=== PATIENT | male | born 1975 | race Caucasian/White ===

== ENCOUNTER → 2016-10-17 | Outpatient (RCR) ==
--- NOTE | 2016-10-17 10:44 | RS.OTEVAL ---
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 He had surgery on 09/28/16. He was first told he had a cancerous tumor, then when they did surgery her found he had a spur with a hook on it. Level of Function: Pt is not able to work. Patient has DDD, has increased pain of 10/10 in the AM and then his pain drops to 6/10 after he takes his pain meds. Pt is seeing a psychiatrist, Meme Donovan. Pt has had [place], Wil[place] Mtn. spotted fever, Limes disease, Ulnar Nerve neuropathy, and difficulty with his BLE. Pt has difficulty tying his shoes, carrying groceries, Vacuuming or sweeping, Carrying a small suitcase with the RUE is quite difficult. Functional Limitations: Sleep, Self Care, ADL's, Reaching, Pushing, Pulling, Lifting, Carrying Current Complaints/Gains: numbness of bilateral hands small digit and ring digits. Pain in RUE shoulder is a 6/10 after pain medications. Pt has to roll out of bed to pick himself up to stand and walk. Medical History Medical History: Hypertension, CVA/TIA, Arthritis Medical History Comments:: Pt has anxiety, Right RCT repair, fractured ankle 4X, limes disease, [place], Wilmer spotted mtn. fever, Surgical History: Other Surgical History Comments:: Incomplete RUE RCT repair. Spur removed. Diagnostic Testing/Imaging:: MRI before surgery showed a mass/spur Patient's Goals: To be able to use his RUE without pain. Pain Assessment - Pain Description Pain Description: Burning, Tightness, Sharp, Throbbing, Aching Pain Location: Right Shoulder Pain Description: burning, sharp, aches Current Pain Intensity: 6 Worst Pain Intensity: 10 Functional Outcome Measures UE Functional Index: 38 - G Codes & Severity Modifier G Codes: na Source of G Code score: na Observation - Observation Inspection: Edema of RUE shoulder, scar Posture: Normal Handedness: Right Shoulder ROM: Left WFL's Shoulder Muscle Strength: Left WFL's - Right Shoulder ROM Right Shoulder Flexion: 90 Right Shoulder Extension: 40 Right Shoulder Abduction: 80 Right Shoulder Internal Rotation: 60 Right Shoulder External Rotation: 37 Right Shoulder ROM Limitations: Soft Tissue Tightness, Pain - Right Shoulder Strength Right Shoulder Flexion: 3- Fair- Right Shoulder Extension: 3- Fair- Right Shoulder Abduction: 3- Fair- Right Shoulder Adduction: 3- Fair- Right Shoulder External Rotation: 3- Fair- Right Shoulder Internal Rotation: 3- Fair- - Special Tests Shoulder Speed's Sign Test: Negative Left Shoulder Drop Arm Test: Negative Left Elbow ROM: Bilaterally WFL's Elbow Muscle Strength: Left WFL's - Left Elbow Strength Left Elbow Extension: 4+ Good + Left Elbow Flexion: 4+ Good + Left Forearm Pronation: 4+ Good + Left Forearm Supination: 4+ Good + - Right Elbow Strength Right Elbow Extension: 4- Good- Right Elbow Flexion: 4 Good Right Forearm Pronation: 4 Good Right Forearm Supination: 4 Good Wrist ROM: Bilaterally WFL's Wrist Muscle Strength: Bilaterally WFL's Palpation Palpation Findings: Trigger Point Comments:: RUE subscapularis muscles Sensation Right Upper Extremity: Impaired Left Upper Extremity: Impaired Sensation Description: Numbness Modalities - Treatment Modality: Ultrasound Parameters/Method Applied: .4 w/cm2 Treatment Area: RUE shoulder Patient Position: Sitting - Hot Pack/Cryotherapy Treatment: Cryotherapy Interventions - Exercise/Activities Exercise/Activities/Manual Therapy: Evaluation, Moderate, Manual HOME EXERCISE PROGRAM: Isometrice exercises: Shlder adduction, extension, int. Rot., Ext. Rot., ice - Charges Total Direct Minutes: 45 Total Treatment Time: 15 Procedures billed for this date of service:: Evaluation moderate, Manual therapy Assessment Assessment: Pt has increased Weakness and requires more assist with ADLS. Pt would benefit from skilled OT for education, strengthening, improving function of RUE. Patient Education: Education of diagnosis, Home Exercise Program, Education of Plan of Care Rehab Potential: Good Problems/Comments: Numbness of part of hands, Weakness, shoulder popping, burning sensation with AROM, decreased independence of ADLS,and carrying items. Short Term Goals Goal #1: Pt to be independent with Home exercise program. Goal to be met by: 10/31/16 Goal #2: Pt to increase RUE AROM by 50%. Goal to be met by: 10/31/16 Goal #3: Pt to increase RUE strength 4+/5 Goal to be met by: 10/31/16 Goal #4: Pt RUE pain to decrease to 3/10. Goal to be met by: 10/31/16 Radio Station Manager Goals Goal #1: Pt to be independent with Home Exercise program. Goal to be met by: 12/08/16 Goal #2: Pt to increase RUE AROM to be WFL. Goal to be met by: 12/08/16 Goal #3: Pt pain in RUE to decrease to 1-2/10 Goal to be met by: 12/08/16 Goal #4: Pt to increase strength to 5/5 Goal to be met by: 12/08/16 Plan - Treatment to be provided Procedures: Therapeutic Exercises, Therapeutic Activity, Gait Training Modalities: Ultrasound/Phonophoresis, Cryotherapy - Treatment Plan Frequency: 2 X week Duration: 6 weeks ORDER # VISITS AND/OR THROUGH DATE: 12/08/16
== END ==
DX: M75.111 Incomplete rotator cuff tear or rupture of right shoulder, not specified as traumatic (principal)

== ENCOUNTER 2016-11-09 09:00 | Outpatient (RCR) ==
--- NOTE | 2016-10-19 14:08 | RS.OTDNOTE ---
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 He had surgery on 09/28/16. He was first told he had a cancerous tumor, then when they did surgery her found he had a spur with a hook on it. Level of Function: Pt is not able to work. Patient has DDD, has increased pain of 10/10 in the AM and then his pain drops to 6/10 after he takes his pain meds. Pt is seeing a psychiatrist, Meme Donovan. Pt has had [place], [place] Mtn[place] spotted fever, Limes disease, Ulnar Nerve neuropathy, and difficulty with his BLE. Pt has difficulty tying his shoes, carrying groceries, Vacuuming or sweeping, Carrying a small suitcase with the RUE is quite difficult. Functional Limitations: Sleep, Self Care, ADL's, Reaching, Pushing, Pulling, Lifting, Carrying Current Complaints/Gains: Pt states he has taken his pain medicine prior to tx and that he took an anxiety pill this am to not be scared of the therapy. States he has a big tolerance for pain. Pain Assessment - Pain Description Pain Location: Right Shoulder Pain Description: burning, sharp, aches Modalities - Treatment Modality: Ultrasound Parameters/Method Applied: 1.5w/cm2 x 12 mins anterior shoulder Patient Position: Supine - Hot Pack/Cryotherapy Treatment: Cryotherapy (x 10+ mins following thera ex) Comments:: CP x 15 mins following TE Interventions - Exercise/Activities Exercise/Activities/Manual Therapy: Pt in supine positon for PROM ex of shoulder elbow and wrist. Shoulder flexion, abd, IR/ER, and abduction performed x 20+ mins with min rests requiered. Pt ed/performed ISO ex with good understanding. HOME EXERCISE PROGRAM: Isometrice exercises: Shlder adduction, extension, int. Rot., Ext. Rot., ice - Charges Total Direct Minutes: 55 Total Treatment Time: 65 Procedures billed for this date of service:: CP US EX MT Assessment Patient Education: Education of diagnosis, Body/Joint mechanics, Home Exercise Program, Home Safety, Activity Modification, Education of Plan of Care Patient demonstrates compliance with HEP?: Yes Short Term Goals Goal #1: Pt to be independent with Home exercise program. Goal to be met by: 10/31/16 Progress towards goal: Progressing Goal #2: Pt to increase RUE AROM by 50%. Goal to be met by: 10/31/16 Progress towards goal: Progressing Goal #3: Pt to increase RUE strength 4+/5 Goal to be met by: 10/31/16 Progress towards goal: Progressing Goal #4: Pt RUE pain to decrease to 3/10. 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 Goal to be met by: 12/08/16 Progress towards goal: Progressing Goal #2: Pt to increase RUE AROM to be WFL. Goal to be met by: 12/08/16 Progress towards goal: Progressing Goal #3: Pt pain in RUE to decrease to 1-2/10 Goal to be met by: 12/08/16 Progress towards goal: Progressing Goal #4: Pt to increase strength to 5/5 Goal to be met by: 12/08/16 Progress towards goal: Progressing Plan PLAN OF CARE EXPIRES ON:: 12/08/16 ORDER # VISITS AND/OR THROUGH DATE: 12/08/16 PLAN: Continue Plan of Care Frequency: 2 X week Duration: 6 weeks
--- NOTE | 2016-10-25 14:00 | RS.OTDNOTE ---
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 He had surgery on 09/28/16. He was first told he had a cancerous tumor, then when they did surgery her found he had a spur with a hook on it. Level of Function: Pt is not able to work. Patient has DDD, has increased pain of 10/10 in the AM and then his pain drops to 6/10 after he takes his pain meds. Pt is seeing a psychiatrist, Meme Donovan. Pt has had [place], [place] spotted fever, Limes disease, Ulnar Nerve neuropathy, and difficulty with his BLE. Pt has difficulty tying his shoes, carrying groceries, Vacuuming or sweeping, Carrying a small suitcase with the RUE is quite difficult. Functional Limitations: Sleep, Self Care, ADL's, Reaching, Pushing, Pulling, Lifting, Carrying Current Complaints/Gains: Pt states increased pain over the past cple days but states it is related to his sleeping position. States he tries to sleep on his back but always wakes with him sleeping on his R arm. States 0 compliance with performing ice packs and that his pain has kept him up at night a few times. States c/o "squeezing sensation" and "popping" with pain increase with reaching. Pain Assessment - Pain Description Pain Description: Burning, Crushing, Sharp Pain Location: Right Shoulder Pain Description: burning, sharp, aches Current Pain Intensity: 4 Worst Pain Intensity: 6-7 Modalities - Treatment Modality: Ultrasound Parameters/Method Applied: 1.5w/cm 2 x 10 mins Patient Position: Sitting - Hot Pack/Cryotherapy Treatment: Cryotherapy (x 15 mins following) Interventions - Exercise/Activities Exercise/Activities/Manual Therapy: Pt in supine/sidelying positon for PROM ex of shoulder elbow and wrist. Shoulder flexion, abd, IR/ER, and abduction performed x 20+ mins with min rests requiered. Pt ed/performed ISO ex 05/20 with good understanding. Manual therapy/trigger point therapy performed with pt ed. HOME EXERCISE PROGRAM: Isometrice exercises: Shlder adduction, extension, int. Rot., Ext. Rot., ice - Objective Findings Objective Findings:: Full PROM - Charges Total Direct Minutes: 45 Total Treatment Time: 60 Procedures billed for this date of service:: CP US EX MT Assessment Patient Education: Education of diagnosis, Body/Joint mechanics, Home Exercise Program, Home Safety, Activity Modification, Education of Plan of Care Patient demonstrates compliance with HEP?: Yes Short Term Goals Goal #1: Pt to be independent with Home exercise program. Goal to be met by: 10/31/16 Progress towards goal: Partially Met Goal #2: Pt to increase RUE AROM by 50%. Goal to be met by: 10/31/16 Progress towards goal: Partially Met Goal #3: Pt to increase RUE strength 4+/5 Goal to be met by: 10/31/16 Progress towards goal: Partially Met Goal #4: Pt RUE pain to decrease to 3/10. 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 Goal to be met by: 12/08/16 Progress towards goal: Progressing Goal #2: Pt to increase RUE AROM to be WFL. Goal to be met by: 12/08/16 Progress towards goal: Progressing Goal #3: Pt pain in RUE to decrease to 1-2/10 Goal to be met by: 12/08/16 Progress towards goal: Progressing Goal #4: Pt to increase strength to 5/5 Goal to be met by: 12/08/16 Progress towards goal: Progressing Plan PLAN OF CARE EXPIRES ON:: 12/08/16 ORDER # VISITS AND/OR THROUGH DATE: 12/08/16 PLAN: Continue Plan of Care Frequency: 2 X week Duration: 4 weeks
--- NOTE | 2016-10-26 13:32 | RS.OTDNOTE ---
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 He had surgery on 09/28/16. He was first told he had a cancerous tumor, then when they did surgery her found he had a spur with a hook on it. Level of Function: Pt is not able to work. Patient has DDD, has increased pain of 10/10 in the AM and then his pain drops to 6/10 after he takes his pain meds. Pt is seeing a psychiatrist, Meme Donovan. Pt has had [place], [place] spotted fever, Limes disease, Ulnar Nerve neuropathy, and difficulty with his BLE. Pt has difficulty tying his shoes, carrying groceries, Vacuuming or sweeping, Carrying a small suitcase with the RUE is quite difficult. Functional Limitations: Sleep, Self Care, ADL's, Reaching, Pushing, Pulling, Lifting, Carrying Current Complaints/Gains: Pt states he has tried sleeping in different positions to protect arm and has decreased c/o pain this am. Pain Assessment - Pain Description Pain Description: Burning, Crushing, Sharp Pain Location: Right Shoulder Pain Description: burning, sharp, aches Modalities - Treatment Modality: Ultrasound Parameters/Method Applied: 1.5w/cm2 x 10 mins Treatment Area: anterior shoulder Patient Position: Sitting - Hot Pack/Cryotherapy Treatment: Cryotherapy (x15 mins following) Interventions - Exercise/Activities Exercise/Activities/Manual Therapy: Pt in sitting positon for PROM ex of shoulder elbow and wrist. Shoulder flexion, abd, IR/ER, and abduction performed along with RTC series ex with 2# hand weight 05/20 with min rests requiered. B UE stefania system along with 10# B UE retraction, 05/20. Pt ed/ performed ISO ex 05/20 with good understanding. Manual therapy/trigger point therapy performed with pt ed. HOME EXERCISE PROGRAM: Isometric exercises/2# hand weight: Shlder adduction, flexion, extension, int. Rot., Ext. Rot., ice - Objective Findings Objective Findings:: Full PROM - Charges Total Direct Minutes: 50 Total Treatment Time: 65 Procedures billed for this date of service:: EX2 US CP Assessment Patient Education: Education of diagnosis, Body/Joint mechanics, Home Exercise Program, Home Safety, Activity Modification, Education of Plan of Care Patient demonstrates compliance with HEP?: Yes Short Term Goals Goal #1: Pt to be independent with Home exercise program. Goal to be met by: 10/31/16 Progress towards goal: Partially Met Goal #2: Pt to increase RUE AROM by 50%. Goal to be met by: 10/31/16 Progress towards goal: Met Goal #3: Pt to increase RUE strength 4+/5 Goal to be met by: 10/31/16 Progress towards goal: Partially Met Goal #4: Pt RUE pain to decrease to 3/10. 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 Goal to be met by: 12/08/16 Progress towards goal: Progressing Goal #2: Pt to increase RUE AROM to be WFL. Goal to be met by: 12/08/16 Progress towards goal: Progressing Goal #3: Pt pain in RUE to decrease to 1-2/10 Goal to be met by: 12/08/16 Progress towards goal: Progressing Goal #4: Pt to increase strength to 5/5 Goal to be met by: 12/08/16 Progress towards goal: Progressing Plan PLAN OF CARE EXPIRES ON:: 12/08/16 ORDER # VISITS AND/OR THROUGH DATE: 12/08/16 PLAN: Progress Exercises Frequency: 2 X week Duration: 4 weeks
--- NOTE | 2016-10-31 14:03 | RS.OTDNOTE ---
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 He had surgery on 09/28/16. He was first told he had a cancerous tumor, then when they did surgery her found he had a spur with a hook on it. Level of Function: Pt is not able to work. Patient has DDD, has increased pain of 10/10 in the AM and then his pain drops to 6/10 after he takes his pain meds. Pt is seeing a psychiatrist, Meme Donovan. Pt has had [place], [place] spotted fever, Limes disease, Ulnar Nerve neuropathy, and difficulty with his BLE. Pt has difficulty tying his shoes, carrying groceries, Vacuuming or sweeping, Carrying a small suitcase with the RUE is quite difficult. Functional Limitations: Sleep, Self Care, ADL's, Reaching, Pushing, Pulling, Lifting, Carrying Current Complaints/Gains: Pt states pain is much better but that his sleeping positions causes increased pain. States numerous outside activites during tx including tree limb cutting and building a fence. Pain Assessment - Pain Description Pain Description: Burning, Crushing, Sharp Pain Location: Right Shoulder Pain Description: burning, sharp, aches Current Pain Intensity: 8 Worst Pain Intensity: 4 Modalities - Treatment Modality: Ultrasound Parameters/Method Applied: 1.5w/cm2 x 12 mins Treatment Area: anterior/posterior shoulder Patient Position: Sitting - Hot Pack/Cryotherapy Treatment: Cryotherapy (CP x 15 mins following therapy) Interventions - Exercise/Activities Exercise/Activities/Manual Therapy: Pt in sitting positon for PROM ex of shoulder elbow and wrist. Shoulder flexion, abd, IR/ER, and abduction performed along with RTC series ex with 3# hand weight 15/1 with min rests requiered. B UE stefania system along with 20# B UE retraction, 10# bicep curls, IR/ER 10/1. Pt ed/performed ISO ex 05/20 with good understanding. Manual therapy /trigger point therapy performed with pt ed on use of tennis ball/wall at home. HOME EXERCISE PROGRAM: Isometric exercises/3# hand weight: Shlder adduction, flexion, extension, int. Rot., Ext. Rot., ice - Objective Findings Objective Findings:: Full PROM-AROM - Charges Total Direct Minutes: 40 Total Treatment Time: 55 Procedures billed for this date of service:: CP US EX Assessment Patient Education: Education of diagnosis, Body/Joint mechanics, Home Exercise Program, Home Safety, Activity Modification, Education of Plan of Care Patient demonstrates compliance with HEP?: Yes Short Term Goals Goal #1: Pt to be independent with Home exercise program. Goal to be met by: 10/31/16 Progress towards goal: Partially Met Goal #2: Pt to increase RUE AROM by 50%. Goal to be met by: 10/31/16 Progress towards goal: Met Goal #3: Pt to increase RUE strength 4+/5 Goal to be met by: 10/31/16 Progress towards goal: Met Goal #4: Pt RUE pain to decrease to 3/10. Goal to be met by: 10/31/16 Progress towards goal: Progressing Nursing Home Goals Goal #1: Pt to be independent with Home Exercise program. Goal to be met by: 12/08/16 Progress towards goal: Progressing Goal #2: Pt to increase RUE AROM to be WFL. Goal to be met by: 12/08/16 Progress towards goal: Progressing Goal #3: Pt pain in RUE to decrease to 1-2/10 Goal to be met by: 12/08/16 Progress towards goal: Progressing Goal #4: Pt to increase strength to 5/5 Goal to be met by: 12/08/16 Progress towards goal: Progressing Plan PLAN OF CARE EXPIRES ON:: 12/08/16 ORDER # VISITS AND/OR THROUGH DATE: 12/08/16 PLAN: Progress Exercises Frequency: 2 X week Duration: 3 weeks
--- NOTE | 2016-11-02 14:37 | RS.OTDNOTE ---
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 He had surgery on 09/28/16. He was first told he had a cancerous tumor, then when they did surgery her found he had a spur with a hook on it. Level of Function: Pt is not able to work. Patient has DDD, has increased pain of 10/10 in the AM and then his pain drops to 6/10 after he takes his pain meds. Pt is seeing a psychiatrist, Meme Donovan. Pt has had [place], Wil[place] Mtn. spotted fever, Limes disease, Ulnar Nerve neuropathy, and difficulty with his BLE. Pt has difficulty tying his shoes, carrying groceries, Vacuuming or sweeping, Carrying a small suitcase with the RUE is quite difficult. Functional Limitations: Sleep, Self Care, ADL's, Reaching, Pushing, Pulling, Lifting, Carrying Current Complaints/Gains: Pt states pain at 5/10 following therapy but has no facial grimaces during TE/therapy. States pain continues and that he does have trouble with sleeping. States he returns to MD on Sun. and states he has several more surgery consults to come. Pain Assessment - Pain Description Pain Description: Burning, Crushing, Sharp Pain Location: Right Shoulder Pain Description: burning, sharp, aches Current Pain Intensity: 5 Worst Pain Intensity: 7-8 Modalities - Treatment Modality: Ultrasound Parameters/Method Applied: 1.5w/cm2 x 12 mins Treatment Area: anterior/posterior shoulder Patient Position: Sitting - Hot Pack/Cryotherapy Treatment: Cryotherapy (x15 mins following therapy) Interventions - Exercise/Activities Exercise/Activities/Manual Therapy: Pt in sitting positon for PROM ex of shoulder elbow and wrist. Shoulder flexion, abd, IR/ER, and abduction performed along with RTC series ex with 5# hand weight 15/1. B UE stefania system along with 20# B UE retraction, 10# bicep curls, IR/ER 03/09. Green t-band ER with pt ed on HEP. Pt ed/performed ISO ex 05/20 with good understanding. Manual therapy/trigger point therapy performed with pt ed on use of tennis ball/wall at home. HOME EXERCISE PROGRAM: Isometric exercises/3# hand weight: Shlder adduction, flexion, extension, int. Rot., Ext. Rot., ice - Objective Findings Objective Findings:: Full PROM-AROM - Charges Total Direct Minutes: 50 Total Treatment Time: 65 Procedures billed for this date of service:: CP US EX2 Assessment Patient Education: Education of diagnosis, Body/Joint mechanics, Home Exercise Program, Home Safety, Activity Modification, Education of Plan of Care Patient demonstrates compliance with HEP?: Yes Short Term Goals Goal #1: Pt to be independent with Home exercise program. Goal to be met by: 10/31/16 Progress towards goal: Partially Met Goal #2: Pt to increase RUE AROM by 50%. Goal to be met by: 10/31/16 Progress towards goal: Met Goal #3: Pt to increase RUE strength 4+/5 Goal to be met by: 10/31/16 Progress towards goal: Met Goal #4: Pt RUE pain to decrease to 3/10. Goal to be met by: 10/31/16 Progress towards goal: Progressing Mcc Goals Goal #1: Pt to be independent with Home Exercise program. Goal to be met by: 12/08/16 Progress towards goal: Progressing Goal #2: Pt to increase RUE AROM to be WFL. Goal to be met by: 12/08/16 Progress towards goal: Progressing Goal #3: Pt pain in RUE to decrease to 1-2/10 Goal to be met by: 12/08/16 Progress towards goal: Progressing Goal #4: Pt to increase strength to 5/5 Goal to be met by: 12/08/16 Progress towards goal: Progressing Plan PLAN OF CARE EXPIRES ON:: 12/08/16 ORDER # VISITS AND/OR THROUGH DATE: 12/08/16 PLAN: Continue Plan of Care Frequency: 2 X week Duration: 4 weeks
--- NOTE | 2016-11-07 15:05 | RS.OTDNOTE ---
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 He had surgery on 09/28/16. He was first told he had a cancerous tumor, then when they did surgery her found he had a spur with a hook on it. Level of Function: Pt is not able to work. Patient has DDD, has increased pain of 10/10 in the AM and then his pain drops to 6/10 after he takes his pain meds. Pt is seeing a psychiatrist, Meme Donovan. Pt has had [place], [place] Mtn. spotted fever, Limes disease, Ulnar Nerve neuropathy, and difficulty with his BLE. Pt has difficulty tying his shoes, carrying groceries, Vacuuming or sweeping, Carrying a small suitcase with the RUE is quite difficult. Functional Limitations: Sleep, Self Care, ADL's, Reaching, Pushing, Pulling, Lifting, Carrying Current Complaints/Gains: Pt states pain is low but feels "stiff" from not coming to therapy for several days. States return to neuro MD yesterday and returns to a new ortho MD next wk. States he is in the beginning stages of applying for disability but was told he would qualify for light duty work activities. Also states he feels better following therapy and agrees to apply ice pack several times daily. Pain Assessment - Pain Description Pain Description: Burning, Crushing, Sharp Pain Location: Right Shoulder Pain Description: burning, sharp, aches Modalities - Treatment Modality: Ultrasound Parameters/Method Applied: 1.5w/cm 2 x 12 mins Patient Position: Sitting - Hot Pack/Cryotherapy Treatment: Cryotherapy Interventions - Exercise/Activities Exercise/Activities/Manual Therapy: Pt in sitting, supine, and prone positions for TE x 50+ mins this date. PROM/gentle stretching progressed to resistive TE performed. ISO ex performed /, 5# hand weight ex of shoulder flexion, butterfly's and extension in supine position along with shoulder extension and scapula pull backs in prone position, 15/2 each. Multi-gym ex of pull-downs and shoulder pulls performed, 04/10 along with IR/ER and RTC seriers ex's. Pt instructed to walk the wall and perform codman's ex to keep AROM increased between therapy sessions. HOME EXERCISE PROGRAM: Isometric exercises/3# hand weight: Shlder adduction, flexion, extension, int. Rot., Ext. Rot., ice - Objective Findings Objective Findings:: Full PROM-AROM. MMT grossly 4+/5 - Charges Total Direct Minutes: 60 Total Treatment Time: 75 Procedures billed for this date of service:: CP US EX3 Assessment Patient Education: Education of diagnosis, Body/Joint mechanics, Home Exercise Program, Home Safety, Activity Modification, Education of Plan of Care Patient demonstrates compliance with HEP?: Yes Short Term Goals Goal #1: Pt to be independent with Home exercise program. Goal to be met by: 10/31/16 Progress towards goal: Partially Met Goal #2: Pt to increase RUE AROM by 50%. Goal to be met by: 10/31/16 Progress towards goal: Met Goal #3: Pt to increase RUE strength 4+/5 Goal to be met by: 10/31/16 Progress towards goal: Met Goal #4: Pt RUE pain to decrease to 3/10. Goal to be met by: 10/31/16 Progress towards goal: Partially Met Life Skills Coach Goals Goal #1: Pt to be independent with Home Exercise program. Goal to be met by: 12/08/16 Progress towards goal: Partially Met Goal #2: Pt to increase RUE AROM to be WFL. Goal to be met by: 12/08/16 Progress towards goal: Partially Met Comments: following PROM/stretching Goal #3: Pt pain in RUE to decrease to 1-2/10 Goal to be met by: 12/08/16 Progress towards goal: Progressing Goal #4: Pt to increase strength to 5/5 Goal to be met by: 12/08/16 Progress towards goal: Progressing Plan PLAN OF CARE EXPIRES ON:: 12/08/16 ORDER # VISITS AND/OR THROUGH DATE: 12/08/16 PLAN: Continue Plan of Care Frequency: 2 X week Duration: 3 weeks
--- NOTE | 2016-11-09 10:52 | RS.OTDNOTE ---
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 He had surgery on 09/28/16. He was first told he had a cancerous tumor, then when they did surgery her found he had a spur with a hook on it. Level of Function: Pt is not able to work. Patient has DDD, has increased pain of 10/10 in the AM and then his pain drops to 6/10 after he takes his pain meds. Pt is seeing a psychiatrist, Meme Donovan. Pt has had [place], [place]. spotted fever, Limes disease, Ulnar Nerve neuropathy, and difficulty with his BLE. Pt has difficulty tying his shoes, carrying groceries, Vacuuming or sweeping, Carrying a small suitcase with the RUE is quite difficult. Functional Limitations: Sleep, Self Care, ADL's, Reaching, Pushing, Pulling, Lifting, Carrying Current Complaints/Gains: Pt is agreeable to DC today. States he is scheduled for (R) UE cubital tunnel surgery next . States UE strength and ROM are both coming back but is concerned with UE becoming more stiff with rests from CTS. Pt voices good understanding of HEP and states he will perform CP application more at home. Pt also states seveal times duirng tx that he knows he will not be able to perform heavy duty type work activites with all his body problems that are arising. Pain Assessment - Pain Description Pain Description: Tightness, Sharp, Dull, Aching (Popping continues at times with certain movements) Pain Location: Right Shoulder Pain Description: burning, sharp, aches Current Pain Intensity: 1 Worst Pain Intensity: 3 Modalities - Treatment Modality: Ultrasound Parameters/Method Applied: 1.5w/cm2 x 12 mins Treatment Area: anterior shoulder Patient Position: Sitting - Hot Pack/Cryotherapy Treatment: Cryotherapy (x 10+ mins following treatment) Interventions - Exercise/Activities Exercise/Activities/Manual Therapy: HEP instruction with pt performing with blue t-band. IR/ER, pull-downs, shoulder flexion, scaption, and abd. Pt also performed and ed on 5# hand weight RTC series ex. Pt voices good understanding. HOME EXERCISE PROGRAM: Isometric exercises/3# hand weight: Shlder adduction, flexion, extension, int. Rot., Ext. Rot., ice - Objective Findings Objective Findings:: Full PROM-AROM. MMT grossly 4+/5 - Charges Total Direct Minutes: 50 Total Treatment Time: 62 Procedures billed for this date of service:: US EX2 CP Assessment Patient Education: Education of diagnosis, Body/Joint mechanics, Home Exercise Program, Home Safety, Activity Modification, Education of Plan of Care Patient demonstrates compliance with HEP?: Yes Short Term Goals Goal #1: Pt to be independent with Home exercise program. Goal to be met by: 10/31/16 Progress towards goal: Met Goal #2: Pt to increase RUE AROM by 50%. Goal to be met by: 10/31/16 Progress towards goal: Met Goal #3: Pt to increase RUE strength 4+/5 Goal to be met by: 10/31/16 Progress towards goal: Met Goal #4: Pt RUE pain to decrease to 3/10. Goal to be met by: 10/31/16 Progress towards goal: Met Intermediate Goals Goal #1: Pt to be independent with Home Exercise program. Goal to be met by: 12/08/16 Progress towards goal: Met Goal #2: Pt to increase RUE AROM to be WFL. Goal to be met by: 12/08/16 Progress towards goal: Met Goal #3: Pt pain in RUE to decrease to 1-2/10 Goal to be met by: 12/08/16 Progress towards goal: Partially Met Goal #4: Pt to increase strength to 5/5 Goal to be met by: 12/08/16 Progress towards goal: Progressing Plan PLAN OF CARE EXPIRES ON:: 12/08/16 ORDER # VISITS AND/OR THROUGH DATE: 12/08/16 PLAN: DC Frequency: DC Duration: DC
--- NOTE | 2016-11-30 10:41 | RS.OTQKDC ---
OT Discharge Date of Discharge: 11/30/16 Number of Visits: 8 Reason for Discharge: Pt scheduled for an upcoming CTS next wk. Pt agreeable to DC and states good understanding of HEP and CP application.
== END 2016-11-17 ==
DX: M75.111 Incomplete rotator cuff tear or rupture of right shoulder, not specified as traumatic (principal)

== ENCOUNTER 2017-01-19 11:04 | Outpatient (CLI) ==
[2017-01-19 12:02] LABS: BASOPHILS % (AUTO) 0.5 % (0.0-3.0); EOSINOPHILS # (AUTO) 0.2 K/ul (0.0-0.7); EOSINOPHILS % (AUTO) 1.8 % (0.0-7.0); HEMATOCRIT 46.1 % (42.0-52.0); HEMOGLOBIN 16.1 g/dl (14.0-18.0); IMMATURE GRANULOCYTE % (AUTO) 0.2 % (0.0-5.0); LYMPHOCYTES # (AUTO) 2.5 K/uL (0.60-3.4); MEAN CORPUSCULAR HEMOGLOBIN 30.7 pg (27.0-31.0); MEAN CORPUSCULAR HGB CONC 34.9 (31.8-35.4); MEAN CORPUSCULAR VOLUME 87.8 fl (80.0-94.0); MONOCYTES # (AUTO) 0.4 K/uL (0.4-2.0); MONOCYTES % (AUTO) 4.3 (0-10); NEUTROPHILS # (AUTO) 5.1 K/ul (2.0-6.9); NEUTROPHILS % (AUTO) 62.2; PLATELET COUNT 281 10^3/uL (140-440); RED BLOOD COUNT 5.25 10^6/ul (4.70-6.10)
[2017-01-19 12:43] LABS: ALBUMIN 3.8 g/dL (3.4-5.0); ALBUMIN/GLOBULIN RATIO 0.95; ANION GAP 12.6; BILIRUBIN,TOTAL 0.56 mg/dL (0.00-1.20); BUN/CREATININE RATIO 10.9; CALCIUM 9.9 mg/dL (8.2-10.2); CREATININE 1.1 mg/dL (0.60-1.10); POTASSIUM 3.6 mmol/L (3.5-5.1); TOTAL PROTEIN 7.8 g/dL (6.4-8.2)
== END 2017-01-19 11:05 | disposition home or self-care (01) ==
LOC: LAB 11:04
PROVIDERS: ATTEND Nurse Practitioner Family
DX: E78.5 Hyperlipidemia, unspecified (principal); I10 Essential (primary) hypertension
CPT/HCPCS: 36415; 80053; 80061; 84439; 84443; 85025

== ENCOUNTER 2017-01-22 12:03 | Outpatient (CLI) ==
--- NOTE | 2017-01-22 14:14 | MRI ---
EXAM: MRI lumbar spine without and with IV contrast. DATE: 22 January 2017. HISTORY: Dorsaligia, unspecified. Low back pain, bilateral lower extremity numbness. No previous lumbar surgery. TECHNIQUE: Sagittal and axial T1W and T2W sequences of the lumbar spine along with sagittal IR and coronal T2W sequences were obtained using 1.2 Lorene magnet. CONTRAST: Omniscan - 20 ml IV. COMPARISON: MRI L-spine January 25 2016. FINDINGS: There are five gss-ycu-rempdxn lumbar vertebra. A 3 mm anterior subluxation of S1 relati ve to L5 is noted. No other subluxation, acute fracture, osseous malignancy, or pars interarticular is defect is identified. Lumbar vertebra are normal in height. Bone marrow signal is normal. Disc desiccation without significant disc space narrowing is demonstrated at L5-S1. Remaining intervert ebral discs are normal in height and signal. No sacral fracture or stress reaction is detected. SI joints are unremarkable. Conus medullaris terminates at T12-L1. Visible spinal cord is normal. N o abnormal contrast enhancement is identified in the spinal cord, nerve roots, vertebral bodies or i ntervertebral discs. No retroperitoneal lymphadenopathy, paraspinal mass, or aortic aneurysm is evident. Atherosclerotic plaques are scattered within the distal aortic wall. Paraspinal musculature is symmetric bilateral ly. Visible portions of the liver, spleen, adrenal glands, and kidneys are normal. Segmental analysis: T11-12: Normal. T12-L1: Normal. L1-2: Normal. L2-3: Normal. L3-4: Minimal posterior disc bulge, minor facet arthropathy, and slight ligamentum flavum hypertrop hy cause mild central canal stenosis. Each foramen is patent. L4-5: Mild facet arthropathy and mild ligamentum flavum hypertrophy cause mild central canal stenos is. Each foramen is patent. L5-S1: Minor anterior subluxation of S1, small pseudodisc bulge, and minor facet disease cause kala r left foraminal narrowing. Left L5 nerve root contacts the disc bulge near the foramen. No central canal stenosis. IMPRESSIONS: 1. L-spine minor disc bulges and facet disease. 2. Mild central canal stenoses at L3-4 and L4-5. 3. Minor left foraminal narrowing at L5-S1, with left L5 nerve root contacting the disc bulge in th e foramen. This could be a source for pain/radiculopathy. 4. Aortic atherosclerosis.
== END 2017-01-22 12:04 | disposition home or self-care (01) ==
LOC: RAD 12:03
PROVIDERS: ATTEND Nurse Practitioner Family
DX: M54.5 Low back pain (principal); G89.29 Other chronic pain

== ENCOUNTER 2017-02-08 09:48 | Outpatient (CLI) ==
--- NOTE | 2017-02-08 13:41 | MRI ---
EXAM: MRI right shoulder without contrast. HISTORY: Pain right shoulder. Incomplete rotator cuff tear. Rupture of right shoulder. Surgery F ebruary 2017. Repair. Lesion removed and clavicle shaved. TECHNIQUE: Using a local coil on a high field strength magnet multiplanar multisequence magnet reso nance imaging was performed of the right shoulder without intravenous or intra-articular gadolinium contrast.. FINDINGS: I do not have prior radiographs of the right shoulder available for comparison at the marily e of this dictation. A Type I I acromion. Prior acromioplasty / subacromial decompression.. Question detached coracoacr omial ligament/arch. There has additionally been distal right clavicular resection with right acrom ioclavicular joint decompression and abundant surrounding likely scar/granulation tissue.. No defin ite deltoid muscle dehiscence. Free fluid throughout the subacromial/subdeltoid space. Muscle bulk of the rotator cuff shows no overt atrophy or acute muscle strain.. Marked diffuse supr aspinatus tendinosis most evident over the far anterior insertion. There is approximate 15 mm AP by 8 mm in length area of near full-thickness tear to the far anterior insertion. Some trace overlyin g bursal sided fibers. Question full-thickness communication. Posterior there is mild infraspinatu s tendinosis. Large underlying intraosseous cyst/ganglion formation over the posterior greater tube rosity. Posterior intact teres minor tendon fibers. Anterior intact subscapularis tendon fibers. The long head of the biceps tendon shows intact fibers located in expected position within the bicip ital groove and within normal limits signal intensity and morphology. The right humeral head seated and within normal limit in morphology otherwise. No right glenohumera l joint centered subchondral bone marrow edema or bone erosions. Small right glenohumeral joint eff usion.. The right glenoid labrum grossly intact on this non-arthrographic examination.. IMPRESSION: Prior acromioplasty / subacromial decompression. Question detached coracoacromial liga ment/arch. Distal right clavicular resection with right acromioclavicular joint decompression and a bundant surrounding likely scar/granulation tissue. Marked diffuse supraspinatus tendinosis most evident over the far anterior insertion where there is approximate 15 x 8 mm area of near full-thickness tear. Trace overlying bursal sided fibers. Quest ion full-thickness communication. Free fluid throughout the subacromial/subdeltoid space. Mild infraspinatus tendinosis. Large underlying intraosseous cyst/ganglion formation over the poste rior greater tuberosity. Small right glenohumeral joint effusion.
== END 2017-02-08 09:49 | disposition home or self-care (01) ==
LOC: RAD 09:48
PROVIDERS: ATTEND Orthopaedic Surgery
DX: M25.511 Pain in right shoulder (principal); M75.111 Incomplete rotator cuff tear or rupture of right shoulder, not specified as traumatic

== ENCOUNTER 2017-02-13 14:07 | Emergency (ER) ==
[2017-02-13 14:14] VITALS: BP 147/96; TEMP 99.6; BMI 37.6
--- NOTE | 2017-02-13 14:45 | ED.PDOC ---
General ED Provider: Dr. SALVADOR LAWRENCE JR Chief Complaint: Back Pain Stated Complaint: mowing hit several bumps worsened chronic back pain. doing yard work (riding mower worsened after several bumps. has a bad back waiting to see Dr. Veronica doesn't review mri sunday will call sunday[ End ]99.6 86 20 98% 147/96 10 hydrocodone patient is using a cane and has a back brace.MAIN CONCERN IS WORSENING OF DISEASE SEEN ON mri 2 WEEKS AGO- REVIEW OF MR AND PE; NO LIKIL=MANUEL OF NEW INJURY, APPEARS NONSURGICAL BUT AGREE WITH NS FOLLOW UP, STOMACH UPASET WITH ASA- RECC NOT TAKE NSAIDS IF SYMPTOMS- RECCOMEND MUSCLE RELAXANT FOR SYMTOMS Time Seen by Physician: 14:31 Mode of Arrival: Walk-In Information Source: Patient Exam Limitations: No limitations [facility] and Triage Documentation Reviewed and Agree: No Review of Systems - Review Of Systems Constitutional: Reports: No symptoms Eyes: Reports: No symptoms Ears, Nose, Mouth, Throat: Reports: No symptoms Respiratory: Reports: No symptoms Cardiac: Reports: No symptoms GI: Reports: No symptoms : Reports: No symptoms Musculoskeletal: Reports: Back pain (RIGHT L2 AREA, PARA SPINAL INCREASE WITH LEFT SLR- RIGHT SLR NEGATRIVE RIGHT BACK PAIN WITH LEFT SLR NO LIMITATION DISCUSSED WEIGHT LOSS) Skin: Reports: No symptoms Neurological: Reports: No symptoms Endocrine: Reports: No symptoms Hematologic/Lymphatic: Reports: No symptoms All Other Systems: Other Past Medical History - Past Medical History Endocrine: Reports: Dyslipidemia Cardiovascular: Reports: Hypertension Respiratory: Reports: None Hematological: Reports: None Gastrointestinal: Reports: None Genitourinary: Reports: None Neuro/Psych: Reports: Anxiety Musculoskeletal: Reports: Back Pain (chronic) Cancer: Reports: None - Surgical History General Surgical History: Reports: Orthopedic (shoulder surgery torn rotator on right right and left ulnar neuroapthy surgery left carpal tunnel ) - Family History Family History: Reports: Unknown - Social History Smoking Status: Current every day smoker Hx Substance Use: No Alcohol Screening: None Physical Exam - Physical Exam Appearance: Well-appearing, Obese Pain Distress: Moderate Neck: Supple Respiratory: Airway patent Musculoskeletal: Normal strength, ROM intact, No edema, No calf tenderness (= TENDER RIGHT BACK) Skin: Warm, Dry, Normal color Neurological: Sensation intact, Motor intact, Reflexes intact, Cranial nerves intact, Alert, Oriented Critical Care Note - Critical Care Note Total Time (mins): 0 Course - Course Vital Signs: Temp Pulse Resp BP Pulse Ox 02/13/17 14:08 99.6 F 86 20 147/96 H 98 Departure - Departure Time of Disposition: 14:48 Disposition: HOME SELF-CARE Discharge Problem: Low back strain Instructions: Low Back Strain (ED), Lower Back Exercises (ED), Core Strengthening Exercises (ED) Condition: Good Pt referred to PMD for follow-up: Yes Additional Instructions: NORFLEX TWICE A DAY NEEDED FOR SPASMS NAPROSYN FOR PAIN (DO NOT TAKE WITH IBUPROFEN) DO NOT TAKE IF STOMACH UPSET FOLLOW UP TWO WEEKS PLANNED Prescriptions: Naproxen [Naprosyn] 500 mg PO Q12HR PRN #30 tablet PRN Reason: PAIN Orphenadrine Citrate [Norflex] 100 mg PO Q12H PRN #30 tablet.er PRN Reason: Spasms Allergies/Adverse Reactions: Allergies Penicillins Allergy (Severe, Verified 02/13/17 14:14) Anaphylaxis Home Medications: Ambulatory Orders Ibuprofen 200 mg PO PRN PRN 02/17/14 Alprazolam [Xanax] 1 mg PO QID 01/07/16 Amitriptyline HCl 300 mg PO BEDTIME PRN 01/07/16 Hydrocodone/Acetaminophen [Hydrocodon-Acetaminophn 10-325] 1 each PO TID PRN Naproxen [Naprosyn] 500 mg PO Q12HR PRN #30 tablet 02/13/17 Orphenadrine Citrate [Norflex] 100 mg PO Q12H PRN #30 tablet.er 02/13/17
[2017-02-13] MEDS ORDERED: TORADOL IM STA (14:47)
[2017-02-13] MEDS ORDERED: NORFLEX IM STA (14:47)
== END 2017-02-13 15:17 | disposition home or self-care (01) ==
LOC: ED 14:07
DX: S39.012A Strain of muscle, fascia and tendon of lower back, initial encounter (principal); X50.1XXA Overexertion from prolonged static or awkward postures, initial encounter
CPT/HCPCS: 96372; 99283

== ENCOUNTER 2017-05-17 10:00 | Outpatient (RCR) ==
--- NOTE | 2017-05-02 08:21 | RS.OPPTEV2 ---
Date of Note: 05/01/17 Visit #: 1 Date of Evaluation: 05/01/17 Payer Source: Medicaid Surgery Performed?: Yes Date of Procedure: 04/03/17 Treatment Diagnosis: Right shoulder limitation/stiffness, right shoulder weakness History of Condition/Mechanism of Injury:: Patient reports previous right shoulder surgery 09/28/[address] Adam Bradshaw. States he continued to have pain. States after Dr. Bradshaw's , he was transferred to Dr. Alvarado who felt he needed further surgery. States this year he has also had left Carpal tunnel repair and bilateral ulnar nerve relocation surgery. Prior Level of Function.....Patient was independent with: ADL's, Self Care, Caregiving, Ambulation/Mobility, Community Integration/Access Functional Limitations: Sleep, Self Care, ADL's, Reaching, Pushing, Pulling, Lifting, Carrying, Community Access/Integration Current Subjective/complaints:: Patient reports this shoulder surgery has gone much better than the first one. States he has very little discomfort. States he is mainly right handed and is unable to use the right UE for reaching and lifting due to weakness and limited AROM. Treatment Side (optional): Right Medical History Medical History: Hypertension, CVA/TIA, Arthritis Medical History Comments:: Pt has anxiety, Right RCT repair, fractured ankle 4X, limes disease, [place], Wilmer spotted mtn. fever, Surgical History: Other Surgical History Comments:: Incomplete RUE RCT repair. Spur removed. Smoking Status: Current every day smoker Hx Home Medications: Hydrocodone, Lisinopril, HCTZ, amitriptyline Patient's Goals: His goal is to get relief Pain Assessment - Pain Description Pain Location: right shoulder Current Pain Intensity: 1/10 prior to therapy Functional Outcome Measure UE Functional Index: 22 (22/80=72.5% impairment) - G Codes & Severity Modifier G Codes & Modifier: NA Source of G Code score: NA Observation - Observation Inspection: Demonstrates well healing incision sites at the right shoulder. Posture: Forward Head, Rounded Shoulders Handedness: Ambidextrous (mostly right hand dominant) Shoulder ROM: Left WFL's Shoulder Muscle Strength: Left WFL's - Right Shoulder ROM Comments: right shoulder PROM is WFL's. AROM right shoulder: flexion 104 degrees, extension 50 degrees, abduction 90 degrees, IR 35 degrees, ER 38 degrees. Demonstrates full right elbow AROM 0-150. 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 Tolerates PROM WFL's. Reports slight discomfort at the anterior shoulder region with end range horizontal adduction. Staying in supine, patient performed gentle isometrics with shoulder held at 90 degrees flexion, into flexion/extension, and horz add/abd. Performed on shoulder pulleys X 15-20 reps. Scapular retraction with green theraband 2 sets of 10 reps. Performed 10 wall push-ups. Patient given green theraband for scapular retraction at home and also advised to perform pendulum exercises and ice PRN. Manual Therapy: NA HOME EXERCISE PROGRAM: green theraband for scapular retraction and pendulum exercise for home - Charges Total Direct Minutes: 50 mins Total Treatment Time: 50 mins Procedures billed for this date of service:: EVAL low X 3 Assessment Assessment: Patient presents to therapy with a diagnosis of complete RTC tear of right shoulder. Instructions per order to follow debridement protocol. Surgical report was requested. He demonstrates limited AROM of the right shoulder due weakness and recent surgery. He demonstrates great potential regain functional AROM of the right shoulder to return to his previous level of function. Patient Education: Education of diagnosis, Body/Joint mechanics, Home Exercise Program, Home Safety, Activity Modification, Education of Plan of Care Rehab Potential: Good Short Term Goals Goal #1: Pt independent and compliant with HEP. Goal to be met by: 05/15/17 Goal #2: Right shoulder AROM WFL's. Goal to be met by: 05/15/17 Goal #3: Pt able to use right UE for light ADL's. Goal to be met by: 05/15/17 Card Hanger Goals Goal #1: Pt knows HEP and to continue ex's to maintain and progress use of RUE. Goal to be met by: 06/15/17 Goal #2: Score on UE functional scale improved to 60/80. Goal to be met by: 06/15/17 Goal #3: Pt able to use right UE for all functional reaching & ADL's w/o difficulty Goal to be met by: 06/15/17 Goal #4: Pt able to use right UE as needed without shoulder pain. Goal to be met by: 06/15/17 Plan - Treatment to be Provided Procedures: Therapeutic Exercises, Therapeutic Activity, Patient Education Modalities: Cryotherapy - Treatment Plan Frequency: 3 X week Duration: 6 weeks ORDER # VISITS AND/OR THROUGH DATE: 06/15/17 - Treatment Code (1) Stiffness of right shoulder joint Code(s): M25.611 - STIFFNESS OF RIGHT SHOULDER, NOT ELSEWHERE CLASSIFIED Comments: M25.611 (2) Muscle weakness of right arm Code(s): M62.81 - MUSCLE WEAKNESS (GENERALIZED) Comments: M62.81 (3) Right shoulder pain Code(s): M25.511 - PAIN IN RIGHT SHOULDER Qualifiers: Chronicity: acute Qualified Code(s): M25.511 - Pain in right shoulder (4) Nontraumatic complete tear of right rotator cuff Code(s): M75.121 - COMPLETE ROTATR-CUFF TEAR/RUPTR OF R SHOULDER, NOT TRAUMA Comments: M75.121 (5) S/P shoulder surgery Code(s): Z98.89 - OTHER SPECIFIED POSTPROCEDURAL STATES * DO NOT USE * Comments: Z98.890
--- NOTE | 2017-05-03 10:47 | RS.OPPTDN ---
Subjective Date of Note: 05/03/17 Visit #: 2 Date of Evaluation: 05/01/17 Payer Source: Medicaid Treatment Diagnosis: Right shoulder limitation/stiffness, right shoulder weakness Current Subjective/complaints:: Patient reports soreness after PT eval., but better yesterday and today. *Precautions: Anxiety Pain Assessment - Pain Description Pain Location: right shoulder Pain Description: Dull, Aching Current Pain Intensity: 3/10 Interventions - Exercise/Activities/Manual Therapy Exercises/Activities: 35 mins.IN supine,patient received PROM in all directions. Tolerates PROM WFL's. Reports slight discomfort at the anterior shoulder region with end range horizontal adduction. Staying in supine, patient performed gentle isometrics with shoulder held at 90 degrees flexion, into flexion/extension, and horz add/abd. Performed on shoulder pulleys X 15- 20 reps. Scapular retraction with green theraband 2 sets of 10 reps. Total minutes of Exercise: 35 Manual Therapy: NA Total minutes of Manual Therapy: 0 HOME EXERCISE PROGRAM: green theraband for scapular retraction and pendulum exercise for home - Charges Total Direct Minutes: 35 Total Treatment Time: 35 Procedures billed for this date of service:: ex2 Assessment: Patient reports stretch discomfort only today with exercises,no sharp pain present.He has good return demo of each exercise,good safety awareness.His PROM is functional in all directions.He reports the most difficulty with reaching behind him ,such as toward the hip pocket or more.He understands to not force te IR or ER of the R shoulder. Patient Education: Education of diagnosis, Body/Joint mechanics, Home Exercise Program, Home Safety, Activity Modification, Education of Plan of Care Patient demonstrates compliance with HEP?: Yes Short Term Goals Goal #1: Pt independent and compliant with HEP. Goal to be met by: 05/15/17 Progress towards Goal:: Progressing Goal #2: Right shoulder AROM WFL's. Goal to be met by: 05/15/17 Goal #3: Pt able to use right UE for light ADL's. Goal to be met by: 05/15/17 Long-Term Goals Goal #1: Pt knows HEP and to continue ex's to maintain and progress use of RUE. Goal to be met by: 06/15/17 Goal #2: Score on UE functional scale improved to 60/80. Goal to be met by: 06/15/17 Goal #3: Pt able to use right UE for all functional reaching & ADL's w/o difficulty Goal to be met by: 06/15/17 Goal #4: Pt able to use right UE as needed without shoulder pain. Goal to be met by: 06/15/17 Plan PLAN OF CARE EXPIRES ON:: 06/15/17 ORDER # VISITS AND/OR THROUGH DATE: 06/15/17 PLAN: Continue Plan of Care
--- NOTE | 2017-05-07 11:01 | RS.OPPTDN ---
Subjective Date of Note: 05/07/17 Visit #: 3 Date of Evaluation: 05/01/17 Payer Source: Medicaid Treatment Diagnosis: Right shoulder limitation/stiffness, right shoulder weakness Current Subjective/complaints:: Patient reports the R shoulder continues to feel better,only minimal soreness from the exercises. *Precautions: Anxiety Pain Assessment - Pain Description Pain Location: right shoulder Pain Description: Dull, Aching Current Pain Intensity: not rated Interventions - Exercise/Activities/Manual Therapy Exercises/Activities: 45 mins.IN supine,patient received PROM in all directions.PROM in all planes,progressed to wand exercises,both 1 and 3#,then 2 # dumbbell.Ended session with standing postural pullbacks using green theraband.HEP review per the shoulder protocol 4 1/2 weeks post-op today. Total minutes of Exercise: 45 Manual Therapy: NA Total minutes of Manual Therapy: 0 HOME EXERCISE PROGRAM: green theraband for scapular retraction and pendulum exercise for home - Charges Total Direct Minutes: 45 Total Treatment Time: 45 Procedures billed for this date of service:: ex 3 Assessment: Patient progressing well,has functional PROM in all directions.He reports minimal increase stretch discomfort with eccentrics today.He has very good knowledge of safety precautions and return demo of HEP.He tolerates the AAROM exercises with report of fatigue,but no sharp pain. Patient Education: Education of diagnosis, Body/Joint mechanics, Home Exercise Program, Home Safety, Activity Modification, Education of Plan of Care Patient demonstrates compliance with HEP?: Yes Short Term Goals Goal #1: Pt independent and compliant with HEP. Goal to be met by: 05/15/17 Progress towards Goal:: Progressing Goal #2: Right shoulder AROM WFL's. Goal to be met by: 05/15/17 Progress towards Goal:: Progressing Goal #3: Pt able to use right UE for light ADL's. Goal to be met by: 05/15/17 Progress towards Goal:: Progressing Longterm Goals Goal #1: Pt knows HEP and to continue ex's to maintain and progress use of RUE. Goal to be met by: 06/15/17 Progress towards goal: Progressing Goal #2: Score on UE functional scale improved to 60/80. Goal to be met by: 06/15/17 Goal #3: Pt able to use right UE for all functional reaching & ADL's w/o difficulty Goal to be met by: 06/15/17 Goal #4: Pt able to use right UE as needed without shoulder pain. Goal to be met by: 06/15/17 Plan PLAN OF CARE EXPIRES ON:: 05/16/17 ORDER # VISITS AND/OR THROUGH DATE: 06/15/17 PLAN: Progress Exercises
--- NOTE | 2017-05-10 11:13 | RS.OPPTDN ---
Subjective Date of Note: 05/10/17 Visit #: 4 Date of Evaluation: 05/01/17 Payer Source: Medicaid Treatment Diagnosis: Right shoulder limitation/stiffness, right shoulder weakness Current Subjective/complaints:: Patient reports tolerating the last session well ,no pain today in the R shoulder. *Precautions: Anxiety Pain Assessment - Pain Description Pain Location: right shoulder Pain Description: Dull, Aching Current Pain Intensity: not rated Other Comments regarding Pain:: pain elevates at night generally Interventions - Exercise/Activities/Manual Therapy Exercises/Activities: 45 mins.beginning in supine,patient received PROM in all directions.3# wand exercises,3/15 of chest press,and over head flexion.Standing PNF patterns with 2# for R UE.Ended session with standing postural pullbacks using green theraband at 3 different angles..HEP review. Total minutes of Exercise: 45 Manual Therapy: NA Total minutes of Manual Therapy: 0 HOME EXERCISE PROGRAM: green theraband for scapular retraction and pendulum exercise for home - Charges Total Direct Minutes: 45 Total Treatment Time: 45 Procedures billed for this date of service:: ex 3 Assessment: Patient very attentive and compliant to HEOP.He reports occasional crepitus in the GH region ,but no pain present today with exercises.He has good eccentric control as his motion and strength improve. Patient Education: Education of diagnosis, Body/Joint mechanics, Home Exercise Program, Home Safety, Activity Modification, Education of Plan of Care Patient demonstrates compliance with HEP?: Yes Short Term Goals Goal #1: Pt independent and compliant with HEP. Goal to be met by: 05/15/17 Progress towards Goal:: Progressing Goal #2: Right shoulder AROM WFL's. Goal to be met by: 05/15/17 Progress towards Goal:: Progressing Goal #3: Pt able to use right UE for light ADL's. Goal to be met by: 05/15/17 Progress towards Goal:: Progressing Senior Care Goals Goal #1: Pt knows HEP and to continue ex's to maintain and progress use of RUE. Goal to be met by: 06/15/17 Progress towards goal: Progressing Goal #2: Score on UE functional scale improved to 60/80. Goal to be met by: 06/15/17 Goal #3: Pt able to use right UE for all functional reaching & ADL's w/o difficulty Goal to be met by: 06/15/17 Goal #4: Pt able to use right UE as needed without shoulder pain. Goal to be met by: 06/15/17 Plan PLAN OF CARE EXPIRES ON:: 06/15/17 ORDER # VISITS AND/OR THROUGH DATE: 06/15/17 PLAN: Continue Plan of Care
--- NOTE | 2017-05-15 11:02 | RS.OPPTDN ---
Subjective Date of Note: 05/15/17 Visit #: 5 Date of Evaluation: 05/01/17 Payer Source: Medicaid Treatment Diagnosis: Right shoulder limitation/stiffness, right shoulder weakness Current Subjective/complaints:: Patient reports the shoulder is doing well today.He has good understanding of technique and safety precautions.He also has a copy of the shoulder priotocol. *Precautions: Anxiety Pain Assessment - Pain Description Pain Location: right shoulder Pain Description: Dull, Aching Current Pain Intensity: not rated Interventions - Exercise/Activities/Manual Therapy Exercises/Activities: 45 mins.beginning in sitting,patient received PROM in all directions.Progressed to multi-gym exercises of postural pullbacks with 10# , below shoulder level,boxers punch motion below shoulder level also with 10#,3/ 15 each exercise.Active shoulder scaption ,3/15 reps with 3 # dumbbell.HEP review for 6 weeks post-op today. Total minutes of Exercise: 45 Manual Therapy: NA Total minutes of Manual Therapy: 0 HOME EXERCISE PROGRAM: green theraband for scapular retraction and pendulum exercise for home.6 weeks post-op today progress strengthening exercises as tolerated in PAIN FREE ROM. - Charges Total Direct Minutes: 45 Total Treatment Time: 45 Procedures billed for this date of service:: ex 3 Assessment: Patient progressing well,has crepitus present with initiating resistive exercises today ,but he reports this lessens aas the exercises progress.He has slight stretch discomfort,but no sharp pain present with AROM.He is compliant to protocol,motivatyed to improve. Patient Education: Education of diagnosis, Body/Joint mechanics, Home Exercise Program, Home Safety, Activity Modification, Education of Plan of Care Patient demonstrates compliance with HEP?: Yes Short Term Goals Goal #1: Pt independent and compliant with HEP. Goal to be met by: 05/15/17 Progress towards Goal:: Progressing Goal #2: Right shoulder AROM WFL's. Goal to be met by: 05/15/17 Progress towards Goal:: Progressing Goal #3: Pt able to use right UE for light ADL's. Goal to be met by: 05/15/17 Progress towards Goal:: Partially Met Prison Goals Goal #1: Pt knows HEP and to continue ex's to maintain and progress use of RUE. Goal to be met by: 06/15/17 Progress towards goal: Progressing Goal #2: Score on UE functional scale improved to 60/80. Goal to be met by: 06/15/17 Goal #3: Pt able to use right UE for all functional reaching & ADL's w/o difficulty Goal to be met by: 06/15/17 Progress towards goal: Progressing Goal #4: Pt able to use right UE as needed without shoulder pain. Goal to be met by: 06/15/17 Progress towards goal: Progressing Plan PLAN OF CARE EXPIRES ON:: 06/15/17 ORDER # VISITS AND/OR THROUGH DATE: 06/15/17 PLAN: Continue Plan of Care
--- NOTE | 2017-05-17 11:13 | RS.OPPTDN ---
Subjective Date of Note: 05/17/17 Visit #: 6 Date of Evaluation: 05/01/17 Payer Source: Medicaid Treatment Diagnosis: Right shoulder limitation/stiffness, right shoulder weakness Current Subjective/complaints:: No c/o,feels he is progressing . *Precautions: Anxiety Pain Assessment - Pain Description Pain Location: right shoulder Pain Description: Dull, Aching Current Pain Intensity: not rated Interventions - Exercise/Activities/Manual Therapy Exercises/Activities: 50 mins.total using green theraband and multii-gym for resistive training to The R shoulder,/ -15 reps all exercises,including postural pull backs at different heights. 10 # resistance used,except for any overhead motion .5# dumbbell for overhead flexion .Diagonal pulling down pattern (across body ) with 10 #.green theraband for shoulder IR/ER with R UE abducted approx. 30 degrees.Ended session with pendulum exercise briefly for relaxation. Total minutes of Exercise: 50 Manual Therapy: NA Total minutes of Manual Therapy: 0 HOME EXERCISE PROGRAM: green theraband for scapular retraction and pendulum exercise for home. Progress strengthening exercises as tolerated in PAIN FREE ROM. - Charges Total Direct Minutes: 50 Total Treatment Time: 50 Procedures billed for this date of service:: ex 3 Assessment: Patient 's ROM passively is WNL.AROM is functional,but still can benefit from strengthening to reduce risk of re-injury to the R shoulder.He fatigues easily with ER.The IR is tight,making it difficult to reach behind him.He is very attentive and motivated to improve. Patient Education: Education of diagnosis, Body/Joint mechanics, Home Exercise Program, Home Safety, Activity Modification, Education of Plan of Care Patient demonstrates compliance with HEP?: Yes Short Term Goals Goal #1: Pt independent and compliant with HEP. Goal to be met by: 05/15/17 Progress towards Goal:: Progressing Goal #2: Right shoulder AROM WFL's. Goal to be met by: 05/15/17 Progress towards Goal:: Partially Met Goal #3: Pt able to use right UE for light ADL's. 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 Goal to be met by: 06/15/17 Progress towards goal: Progressing Goal #2: Score on UE functional scale improved to 60/80. Goal to be met by: 06/15/17 Goal #3: Pt able to use right UE for all functional reaching & ADL's w/o difficulty Goal to be met by: 06/15/17 Progress towards goal: Progressing Goal #4: Pt able to use right UE as needed without shoulder pain. Goal to be met by: 06/15/17 Progress towards goal: Progressing Plan PLAN OF CARE EXPIRES ON:: 06/15/17 ORDER # VISITS AND/OR THROUGH DATE: 06/15/17 PLAN: Continue Plan of Care
== END 2017-05-19 ==
PROVIDERS: ATTEND Orthopaedic Surgery
DX: M75.121 Complete rotator cuff tear or rupture of right shoulder, not specified as traumatic (principal)

== ENCOUNTER 2017-10-16 10:41 | Outpatient (CLI) | END 2017-10-16 10:42 | disposition home or self-care (01) | LOC: CAR 10:41 | PROVIDERS: ATTEND Physician Assistant | DX: R07.9 Chest pain, unspecified (principal); I10 Essential (primary) hypertension; E78.5 Hyperlipidemia, unspecified; Z13.1 Encounter for screening for diabetes mellitus; Z13.29 Encounter for screening for other suspected endocrine disorder; R53.83 Other fatigue | CPT/HCPCS: 36415; 80053; 80061; 82306; 83036; 84443; 85025; 93005; 93010 ==

== ENCOUNTER 2017-12-12 06:23 | Outpatient (CLI) ==
[2017-12-12] MEDS ORDERED: ATROPINE SULFATE PFS ONE (07:08)
[2017-12-12] MEDS ORDERED: DOBUTAMINE 250 ML IV ONE (07:08)
--- NOTE | 2017-12-12 12:28 | ECHOSTRESS ---
Date of Exam: 12/12/17 Ordering Physician: MERRY NEIL APRN Reason for Echo: CHEST PAIN, DOBUTAMINE STRESS --NO ISCHEMIA M-Mode Normal Adult Results LV Dimensions Normal Adult Results AoV Opening excursions >1.6 LVEDD-base- 3.5-5.8 Ao root dimensions 2.0-3.7 LVESD-base- 3.1-4.6 L. Atrium dimensions 1.9-3.8 Post. Wall thickness 0.8-1.1 IV septum (thickness) 0.7-1.2 Post. Wall excursion 0.72-1.3 Septal motion Systolic motion R. Ventricular cavity 1.5-2.0 LVEF 60% Paradoxical septal wall motion 2-D: NORMAL LEFT VENTRICULAR CONTRACTILITY--RESTING AND WITH DOBUTAMINE INFUSION M-MODE: MV: AV: TV: PV: CHAMBER SIZE: WALL MOTION: NORMAL LEFT VENTRICULAR CONTRACTILITY--RESTING AND WITH DOBUTAMINE INFUSION PERICARDIUM: INTERPRETATION: 1. NORMAL LEFT VENTRICULAR CONTRACTILITY--RESTING AND WITH DOBUTAMINE INFUSION MTDD
--- NOTE | 2017-12-12 12:35 | ED.PDOC ---
Procedures - IV/Art Line Insertion Location: rt wrist Type of Line: Peripheral IV Invasive Line/IV Catheter Gauge: 22 Number of Attempts: 1 Blood Return Positive: Yes Invasive Line/IV Flushes Without Difficulty: Yes Conscious Sedation - Pre-op Assessment Weight: 275 lb Surgical History: shoulder surgery torn rotator on right. right and left ulnar neuroapthy surgery. left carpal tunnel - Medical History Past Medical History: Hypertension, High Lipids, Anxiety Other History: chronic back pain
--- NOTE | 2017-12-12 13:41 | DOBSTECHO ---
Ordering Physician: MERRY NEIL APRN Date of Test: 12/12/17 Reason for Examination: CHEST PAIN, HYPERTENSION Current Medications: HYDROCODONE, XANAX, AMITRIPTYLINE, ZANTAC, SIMVASTATIN, LISINOPRIL, NAPROXEN Height: 71" Weight: 275 LBS Target Heart Rate: 151/178 S-T Segment Stage Time HR BPM BP MMHG Rhythm +/- Elevation Depression Comments/ Symptoms Control Sitting 63 130/80 SR X NONE Dobutamine 250mg/D5W 5cmg/KG/mn 10cmg/KG/mn 3" 78 128/70 SR X NONE 15cmg/KG/mn 2" 82 SR X NONE 20cmg/KG/mn 2" 94 140/62 SR X NONE 25cmg/KG/mn 2" 106 SR X .25 ATROPINE 30cmg/KG/mn 2" 113 126/58 SR X .25 ATROPINE 35cmg/KG/mn 2" 133 SR X NONE 40cmg/KG/mn :50 133 138/52 SR X NONE Time: 3" HR B/P Time: 7" HR B/P Time: 10" HR B/P Recovery 120 Recovery 102 118/68 Recovery 88 Total Time: 13:50 Maximum Heart Rate Reached: 133 Interpretation: 96% OXYGEN SATURATION AT REST 1. NO EVIDENCE OF ISCHEMIA FROM HEART RATE 63 BPM TO 133 BPM 2. NO CHEST PAIN OR DISCOMFORT 3. NORMAL LEFT VENTRICULAR CONTRACTILITY--RESTING AND WITH DOBUTAMINE INFUSION MTDD
== END 2017-12-12 06:24 | disposition home or self-care (01) ==
LOC: CAR 06:23
PROVIDERS: ATTEND Physician Assistant
DX: R07.9 Chest pain, unspecified (principal)

== ENCOUNTER 2017-12-13 11:15 | Outpatient (CLI) | END 2017-12-13 11:16 | disposition home or self-care (01) | LOC: LAB 11:15 | PROVIDERS: ATTEND Physician Assistant | DX: E87.6 Hypokalemia (principal) | CPT/HCPCS: 36415; 80053 ==

== ENCOUNTER 2018-01-15 09:01 | Emergency (ER) ==
[2018-01-15 09:04] VITALS: TEMP 97.6; BMI 37.3
[2018-01-15 09:07] VITALS: BP 162/92
[2018-01-15] MEDS ORDERED: DILAUDID IVP STA (09:10)
--- NOTE | 2018-01-15 10:00 | CT ---
EXAM: CT Abdomen without contrast. CT Pelvis without contrast. HISTORY: Left flank pain. Left lower quadrant pain. COMPARISON: 02/09/2015. TECHNIQUE: Multiple axial images of the abdomen and pelvis were obtained without intravenous contras t. Images were reformatted in the sagittal and coronal plane. FINDINGS: Please note that evaluation of the abdominal and pelvic structures is limited due to lack of intravenous contrast. The lung bases are clear. No acute osseous abnormality identified. The liver, gallbladder, pancreas, spleen, adrenal glands demonstrate normal contour. Right kidney is normal. There is mild left hydronephrosis. Left perinephric fat stranding secondary to a 0.4 cm ob structing calculus at the left ureteral vesicle junction. The bowel is normal in course and caliber without evidence for obstruction or inflammatory process. The appendix is normal. No free fluid or free air identified. Small fat-containing umbilical hernia is present. Mild atherosclerotic calcifications noted. IMPRESSION: A 0.4 cm obstructing calculus at the left ureteral vesicle junction causing mild left hydronephrosis.
--- NOTE | 2018-01-15 10:07 | ED.PDOC ---
General ED Provider: Dr. SHAMEKA AMADOR Chief Complaint: Back Pain Stated Complaint: LEFT FLANK PAIN Time Seen by Physician: 09:00 (LEFT FLANK PAIN SUDDEN ONSET 05/29) Mode of Arrival: Walk-In Information Source: Patient Exam Limitations: No limitations Primary Care Provider: MERRY NEIL Nursing and Triage Documentation Reviewed and Agree: Yes Reviewed sepsis parameters & appropriate labs ordered?: Yes System Inflammatory Response Syndrome: Not Applicable Sepsis Protocol: For patient's 13 years and over: Temp is 96.8 and below OR 101 and greater Pulse >90 BPM Resp >20/minute Acutely Altered Mental Status Are patient's symptoms suggestive of a new infection, such as: -Pneumonia -Skin, Soft Tissue -Endocarditis -UTI -Bone, Joint Infection -Implantable Device -Acute Abdominal Infection -Wound Infection -Meningitis -Blood Stream Catheter Infection -Unknown System Inflammatory Response Syndrome: Not Applicable Musculoskeletal Complaint Exam - Back Pain Complaint/Exam Mechanism of Injury: Reports: No known trauma Onset/Duration: THIS MORNINIG Symptoms Are: Still present Timing: Constant Episodes Lasting: Hours Initial Severity: Severe Current Severity: Severe Location: Reports: Discrete (LEFT FLANK) Character: Reports: Spasmodic Aggravating: Reports: None Alleviating: Reports: None Associated Signs and Symptoms: Reports: Flank pain. Denies: Swelling, Redness, Bruising, Fever, Weakness, Numbness, Tingling, Abdominal pain, Bladder incontinence, Bowel incontinence, Weight loss, Pain with weight bearing TAD Risk Factors: Reports: Hypertension AAA Risk Factors: Reports: Hypertension Cauda Equina Risk Factors: Reports: None Epidural Abcess Risk Factors: Reports: None Related Surgical History: Reports: None Focal Tenderness: No Paraspinal Muscle Tenderness: No Paraspinal Muscle Spasm: No Scoliosis: No Lordosis: No Kyphosis: No SLR Test: Right Negative, Left Negative Hip Motion Testing Pain: Right Negative, Left Negative Focal Weakness: Present: None Focal Sensory Loss: Present: None Gait: Present: Unable Differential Diagnoses: Renal Colic Review of Systems - Review Of Systems Constitutional: Reports: No symptoms Eyes: Reports: No symptoms Ears, Nose, Mouth, Throat: Reports: No symptoms Respiratory: Reports: No symptoms Cardiac: Reports: No symptoms GI: Reports: No symptoms : Reports: No symptoms Musculoskeletal: Reports: Back pain Skin: Reports: No symptoms Neurological: Reports: No symptoms Endocrine: Reports: No symptoms Hematologic/Lymphatic: Reports: No symptoms All Other Systems: Reviewed and Negative Past Medical History - Past Medical History Previously Healthy: Yes Endocrine: Reports: Dyslipidemia Cardiovascular: Reports: Hypertension Respiratory: Reports: None Hematological: Reports: None Gastrointestinal: Reports: None Genitourinary: Reports: None Neuro/Psych: Reports: Anxiety Musculoskeletal: Reports: Back Pain (chronic) Cancer: Reports: None - Surgical History General Surgical History: Reports: Orthopedic (shoulder surgery torn rotator on right right and left ulnar neuroapthy surgery left carpal tunnel ) - Family History Family History: Reports: Unknown - Social History Smoking Status: Current every day smoker Hx Substance Use: No Alcohol Screening: None Physical Exam - Physical Exam Appearance: Well-appearing, No pain distress, Well-nourished Eyes: JANEY, EOMI, Conjunctiva clear ENT: Ears normal, Nose normal, Oropharynx normal Respiratory: Airway patent, Breath sounds clear, Breath sounds equal, Respirations nonlabored Cardiovascular: RRR, Pulses normal, No rub, No murmur GI/: Soft, Nontender, No masses, Bowel sounds normal, No Organomegaly Musculoskeletal: Normal strength, ROM intact, No edema, No calf tenderness Skin: Warm, Dry, Normal color Neurological: Sensation intact, Motor intact, Reflexes intact, Cranial nerves intact, Alert, Oriented Psychiatric: Affect appropriate, Mood appropriate Interpretation - Radiology Interpretation Radiology Interpretation By: Radiologist Radiology Results: Positive (OBSTRUCTING STONE AT LEFT UVJ) Physician Notification - Case Discussed Physician Notified: dannie BLACK Time of Notification: 11:06 (WILL SEE PT IN OFFICE PAIN CONTROL AND FLOMAX MEANWHILE) Critical Care Note - Critical Care Note Total Time (mins): 0 Course - Course Hematology/Chemistry: 01/15/18 09:15 01/15/18 09:15 Orders, Labs, Meds: Lab Review 01/15/18 01/15/18 09:15 09:15 WBC 12.10 H RBC 5.21 Hgb 15.7 Hct 45.7 MCV 87.7 MCH 30.1 MCHC 34.4 RDW Coeff of Joel 13.3 Plt Count 253 Immature Gran % (Auto) 0.4 Neut % (Auto) 78.4 Lymph % (Auto) 16.0 Jefferson % (Auto) 4.5 Eos % (Auto) 0.4 Baso % (Auto) 0.3 Immature Gran # (Auto) 0.1 Neut # (Auto) 9.5 H Lymph # (Auto) 1.9 Jefferson # (Auto) 0.6 Eos # (Auto) 0.1 Baso # (Auto) 0.0 Sodium 138 Potassium 4.3 Chloride 100 Carbon Dioxide 27 Anion Gap 15.3 BUN 18 Creatinine 1.37 H Estimated GFR (MDRD) 57.00 BUN/Creatinine Ratio 13.13 Glucose 154 H Calcium 10.3 H Total Bilirubin 0.6 AST 21 ALT 23 Alkaline Phosphatase 68 Total Protein 7.6 Albumin 3.8 Globulin 3.8 Albumin/Globulin Ratio 1.00 Orders Category Date Time Status ED IV/MEDIPORT/POWERPORT .ONCE EMERGENCY 01/15/18 09:12 Active CBC W/ AUTO DIFF Stat LAB 01/15/18 09:15 Completed COMPREHENSIVE METABOLIC PANEL Stat LAB 01/15/18 09:15 Completed URINALYSIS C & S IF INDICATED Stat LAB 01/15/18 09:10 Uncollected 0.9 % Sodium Chloride [Saline Flush] MEDS 01/15/18 09:12 Active 1 syr IVF PRN PRN Hydromorphone HCl [Dilaudid] MEDS 01/15/18 09:10 Discontinued 0.5 mg IVP ONCE STA CT ABD/PEL WO RENAL STONE PROT Stat RADS 01/15/18 09:11 Completed Medications Generic Name Dose Route Start Last Admin Trade Name Freq PRN Reason Stop Dose Admin Sodium Chloride 1 syr 01/15/18 09:12 01/15/18 09:21 Saline Flush IVF 1 syr PRN PRN Administration To flush IV Discontinued Medications Generic Name Dose Route Start Last Admin Trade Name Freq PRN Reason Stop Dose Admin Hydromorphone HCl 0.5 mg 01/15/18 09:10 01/15/18 09:20 Dilaudid IVP 01/15/18 09:11 0.5 mg ONCE STA Administration Vital Signs: Temp Pulse Resp BP Pulse Ox 01/15/18 09:02 97.6 F 85 20 162/92 H 97 Departure - Departure Time of Disposition: 11:00 Disposition: HOME SELF-CARE Discharge Problem: Renal colic on left side, Urinary tract obstruction by kidney stone Instructions: Renal Colic (ED) Condition: Good Pt referred to PMD for follow-up: Yes IPMP verified?: Yes Additional Instructions: Please call your Family Physician as soon as possible to schedule a follow-up appointment. Allergies/Adverse Reactions: Allergies Penicillins Allergy (Severe, Verified 02/13/17 14:14) Anaphylaxis codeine Adverse Reaction (Verified 01/15/18 09:04) Home Medications: Ambulatory Orders Alprazolam [Xanax] 1 mg PO QID 01/07/16 Amitriptyline HCl 300 mg PO BEDTIME PRN 01/07/16 Hydrocodone/Acetaminophen [Hydrocodon-Acetaminophn 10-325] 1 each PO TID PRN Naproxen [Naprosyn] 500 mg PO Q12HR PRN #30 tablet 02/13/17 Orphenadrine Citrate [Norflex] 100 mg PO Q12H PRN #30 tablet.er 02/13/17 Disposition Discussed With: Patient
[2018-01-15] MEDS ORDERED: TORADOL IM STA (11:11)
[2018-01-15] MEDS ORDERED: TORADOL IVP STA (11:14)
== END 2018-01-15 11:42 | disposition home or self-care (01) ==
LOC: ED 09:01
DX: N13.2 Hydronephrosis with renal and ureteral calculous obstruction (principal); I10 Essential (primary) hypertension; F17.210 Nicotine dependence, cigarettes, uncomplicated
CPT/HCPCS: 36415; 74176; 80053; 85025; 96374; 96375; 99283

== ENCOUNTER 2018-02-13 08:57 | Outpatient (CLI) ==
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
== END 2018-02-13 08:58 | disposition home or self-care (01) ==
LOC: RAD 08:57
PROVIDERS: ATTEND Physician Assistant
DX: M47.812 Spondylosis without myelopathy or radiculopathy, cervical region (principal)

== ENCOUNTER 2018-02-14 08:53 | Outpatient (CLI) ==
--- NOTE | 2018-02-14 14:35 | MRI ---
EXAM: MRI lumbar spine without IV contrast. DATE: 14 February 2018. HISTORY: Low back pain. TECHNIQUE: Sagittal and axial T1W and T2W sequences of the lumbar spine along with sagittal IR and c oronal T2W sequences were obtained using 1.2 Lorene magnet. No IV contrast. COMPARISON: MRI L-spine 22 January 2017. FINDINGS: There are five [id number] lumbar vertebra. No lumbar scoliosis is evident. A 3.4 mm anterior subluxation of S1 relative to L5 is observed. No other subluxation, acute fracture, osseou s malignancy, or pars interarticularis defect is demonstrated. Lumbar vertebrae normal in height. B one marrow signal is normal. Disc desiccation and minor disc space narrowing are present at L5-S1. Remaining intervertebral discs are normal in height and signal. No acute sacral fracture or stress r eaction is identified. SI joints are unremarkable. Conus medullaris terminates at T12-L1. Visible spinal cord is normal. No retroperitoneal lymphadenopathy, paraspinal mass, or aortic aneurysm is detected. Tiny atheroscle rotic plaques are scattered in the aortic and iliac artery schuler. Paraspinal musculature is symmetri c bilaterally. Visible portions of the liver, spleen, adrenal glands kidneys are significantly limit ed by breathing motion artifacts, but reveal no definitive neoplasm. No definitive gallstones or acu te cholecystitis is seen. Segmental analysis: T11-12: Normal. T12-L1: Normal. L1-2: Normal. L2-3: Normal. L3-4: Minor posterior disc bulge, mild facet arthropathy, and minor ligamentum flavum hypertrophy ca use mild central canal stenosis. Each foramen is patent. L4-5: Minor posterior disc bulge and mild facet arthropathy, and slight ligamentum flavum hypertroph y cause mild central canal stenosis. Each foramen is patent. L5-S1: Mild anterolisthesis of S1, pseudodisc bulge, and mild facet arthropathy cause mild central c anal stenosis and minor left foraminal narrowing. Left L5 nerve root appears to contact the disc bul ge near the lateral margin of the foramen. IMPRESSIONS: 1. Lumbar spine mild facet arthropathy and minor DDD - - slightly worse at L5-S1 compared to February 06. 2. Mild central canal stenoses at L3-4, L4-5, and L5-S1. 3. Minor left foraminal narrowing at L5-S1, with left L5 nerve root contacting disc bulge near the l ateral margin of the foramen. This could be a source for pain/radiculopathy. 4. Minor abdominal aortic atherosclerosis.
== END 2018-02-14 08:54 | disposition home or self-care (01) ==
LOC: RAD 08:53
PROVIDERS: ATTEND Physician Assistant
DX: M54.5 Low back pain (principal)

== ENCOUNTER 2018-06-20 08:58 | Outpatient (CLI) ==
--- NOTE | 2018-06-20 14:15 | MRI ---
EXAM: MRI right shoulder without contrast COMPARISON: MRI right shoulder 02/08/2017. HISTORY: Right shoulder pain. To previous shoulder surgeries in clothing spur removal and rotator c uff repair. TECHNIQUE: Multiplanar noncontrast MR images of the right shoulder were acquired using a 1.2 Lorene m agnet. FINDINGS: There is marked supraspinatus tendinosis with moderate to marked infraspinatus and subscap ularis tendinosis. There is a progressive tear of the distal supraspinatus with thinning articular s urface irregularity the distal 2.2 cm of the supraspinatus spanning the full width of the tendon exte nding through the anterior portion of the infraspinatus consistent with extensive partial-thickness a rticular surface tear. There is also focal thinning bursal surface irregularity the supraspinatus at /lateral to the acromion with possible communicating full-thickness tear at that level. Fluid in the overlying subacromial/subdeltoid bursa. Cystic degenerative change within the posterior portion of the greater tuberosity as previously noted. Limited assessment of the glenoid labrum on this non arthrographic study. No paralabral cyst. Gleno humeral joint space is preserved without evidence of an acute fracture dislocation. The long head of the biceps is located within the bicipital groove with tendinosis involving intra-ar ticular segment. There are findings consistent with previous subacromial decompression with acromioplasty and resectio n of the distal clavicle resulting in widening of the acromioclavicular joint space. Discontinuity o f the coracoacromial ligament which may be postoperative, unchanged. No abnormal subluxation of the distal clavicular remnant. The coracoclavicular ligament is intact. No soft tissue mass identified. IMPRESSION: 1. Marked rotator cuff tendinosis. There is a progressive tear of the distal supraspinatus with par tial thickness and suspected irregular communicating full-thickness components as described. Partial tear of the infraspinatus. 2. Postoperative changes of the acromioclavicular joint. 3. Long head biceps tendinosis. 4. Fluid in the subacromial/subdeltoid bursa.
== END 2018-06-20 08:59 | disposition home or self-care (01) ==
LOC: RAD 08:58
PROVIDERS: ATTEND Physician Assistant
DX: M25.511 Pain in right shoulder (principal)

== ENCOUNTER 2018-10-18 10:23 | Outpatient (CLI) | END 2018-10-18 10:24 | disposition home or self-care (01) | LOC: CAR 10:23 | PROVIDERS: ATTEND Anesthesiology | DX: Z01.818 Encounter for other preprocedural examination (principal); I10 Essential (primary) hypertension | CPT/HCPCS: 36415; 80048; 93005; 93010 ==